=== PATIENT | male | born 1990 | race Hispanic/Latino ===

== ENCOUNTER → 2023-11-15 | Emergency (ER) | payer SELFPAY ==
[~2023-11-15] MED LIST: IBUPROFEN 400 MG TAB ONE; predniSONE 20 MG TAB ONE
--- NOTE | 2023-11-15 08:38 | RAD REPORT ---
EXAM DESCRIPTION: RAD - Lumbar Spine 3 Views - 11/15/2023 8:32 am CLINICAL HISTORY: RADICULOPATHY COMPARISON: CT ABD PELVIS W CONTRAST dated 06/23/2014 FINDINGS/IMPRESSION: No acute fracture. No malalignment. Mild disc height loss L5-S1. Endplate spurr ing is present at L2-3 and to a lesser extent L1-2 and L3-4 .
--- NOTE | 2023-11-15 11:49 | RAD REPORT ---
EXAM DESCRIPTION: MRI - Lumbar Spine Samara Zuniga - 11/15/2023 11:38 am CLINICAL HISTORY: Low back pain, left radiculopathy. COMPARISON: None. TECHNIQUE: Sagittal T1-weighted, T2-weighted and T2-STIR weighted sequences were obtained. Axial T1 -weighted and heavily T2-weighted sequenceswere obtained through the lumbar disc levels. FINDINGS: Lumbar bodies are normal in height and alignment. No suspicious marrow signal. No paraspin al masses. Conus is normal with no clumping or thickening of the cauda equina. T12-L1 level: No significant findings. L1-2 level: No significant findings. L2-3 level: Mild disc height loss and desiccation. Minimal subligamentous disc bulge. Small facet eff usions. No significant neural foraminal narrowing or central spinal stenosis. L3-4 level: No significant findings. L4-5 level: Annular fissure in the posterior aspect of the disc. Minimal subligamentous disc bulge. M ild facet and ligamentum flavum hypertrophy. This results in mild right neural foraminal narrowing. L eft neural foramen is adequate. No central spinal stenosis. L5-S1 level: Mild disc height loss and desiccation. Mild broad-based disc bulge with superimposed lef t paracentral/foraminal disc extrusion angulated inferiorly which encroaches on the traversing left S 1 nerve root at the level of the epidural fat. Facet hypertrophy. IMPRESSION: Left paracentral/foraminal disc extrusion at L5-S1 encroaches on the traversing left S1 nerve root and likely explains the patient's radiculopathy. Other mild degenerative changes as noted above.
--- NOTE | 2023-11-15 12:01 | EDPHYS ---
Physician Documentation [facility] Name: Jesus Moreland Age: 33 yrs Sex: Male : 1990 Arrival Date: 11/15/2023 Time: 06:55 Bed 14 Private MD: ED Physician Nabor Mesa HPI: 11/14 07:20 This 33 yrs old Male presents to ER via Ambulatory with complaints of Leg Pain sp3 - left. 07:20 33-year-old male with no significant past medical history presents with left radicular sp3 pain starting at the buttock into the posterior aspect of the left leg down to his foot. Patient states it is worse when he sits and when he ambulates. It is less when he is laying down. He denies any injury, heavy lifting or prior injury or herniation. He denies any foot drop or other inability to move musculature. On review of systems, he denies headache, neck pain, chest pain, shortness of breath, back pain, abdominal pain, rash, bleeding, weakness, or symptoms on any other aspect of his body except his left lower extremity.. Historical: - Allergies: 07:19 No Known Allergies; iw - Home Meds: 07:19 None [Active]; iw - PMHx: 07:19 None; iw - PSHx: 07:19 Appendectomy; iw - Immunization history:: Adult Immunizations not up to date. - Social history:: Smoking status: Patient denies any tobacco usage or history of. ROS: 07:21 Constitutional: Negative for fever, chills, and weight loss, Eyes: Negative for injury, sp3 pain, redness, and discharge, ENT: Negative for injury, pain, and discharge, Neck: Negative for injury, pain, and swelling, Cardiovascular: Negative for chest pain, palpitations, and edema, Respiratory: Negative for shortness of breath, cough, wheezing, and pleuritic chest pain, Abdomen/GI: Negative for abdominal pain, nausea, vomiting, diarrhea, and constipation, Back: Negative for injury and pain, Skin: Negative for injury, rash, and discoloration, Psych: Negative for depression, anxiety, suicide ideation, homicidal ideation, and hallucinations, Allergy/Immunology: Negative for hives, rash, and allergies, Endocrine: Negative for neck swelling, polydipsia, polyuria, polyphagia, and marked weight changes, Hematologic/Lymphatic: Negative for swollen nodes, abnormal bleeding, and unusual bruising, 07:21 All other systems are negative, Exam: 07:21 Constitutional: This is a well developed, well nourished patient who is awake, alert, sp3 and in no acute distress. Head/Face: Normocephalic, atraumatic. Neck: Trachea midline, no thyromegaly or masses palpated, and no cervical lymphadenopathy. Supple, full range of motion without nuchal rigidity, or vertebral point tenderness. No Meningismus. Chest/axilla: Normal chest wall appearance and motion. Nontender with no deformity. No lesions are appreciated. Cardiovascular: Regular rate and rhythm with a normal S1 and S2. No gallops, murmurs, or rubs. Normal PMI, no JVD. No pulse deficits. Respiratory: Lungs have equal breath sounds bilaterally, clear to auscultation and percussion. No rales, rhonchi or wheezes noted. No increased work of breathing, no retractions or nasal flaring. Abdomen/GI: Soft, non-tender, with normal bowel sounds. No distension or tympany. No guarding or rebound. No evidence of tenderness throughout. Back: No spinal tenderness. No costovertebral tenderness. Full range of motion. Skin: Warm, dry with normal turgor. Normal color with no rashes, no lesions, and no evidence of cellulitis. MS/ Extremity: Pulses equal, no cyanosis. Neurovascular intact. Full, normal range of motion. Psych: Awake, alert, with orientation to person, place and time. Behavior, mood, and affect are within normal limits. 07:21 Neuro: Normal neurological exam. Positive radicular pain on straight leg raise on the left side at approximately 30 degrees. Neurovascular exam is normal., Vital Signs: 07:17 BP 127 / 78; Pulse 82; Resp 16; Temp 98.1; Pulse Ox 96% on R/A; Weight 108.86 kg; iw Height 5 ft. 9 in. ; Pain 1/10; 07:17 Body Mass Index 35.44 (108.86 kg, 175.26 cm) iw 07:17 Pain Scale: Adult iw MDM: 07:08 Patient medically screened. sp3 07:22 Data reviewed: vital signs, nurses notes, radiologic studies. ED course: 33-year-old sp3 male with left lower extremity radiculopathy. Differential diagnosis includes disc herniation at the lumbar level, sciatica, or other space-occupying lesion somewhere on the nerve itself. Will obtain lumbar x-rays and administer prednisone and NSAID high-dose x 1 orally. Will also call MRI to see if they can get patient in not emergently during his stay here. Otherwise he will be referred to outpatient orthopedics for further imaging and evaluation. I am not highly suspicious for cord compression, sepsis, shock, paraspinal abscess epidural abscess or any other concerning pathology at this time.. 11:57 ED course: MRI demonstrates left paracentral foraminal disc extrusion at L5-S1 sp3 encroaching on the S1 nerve root. This explains clinically the patient's symptoms. We will discharge to orthopedic and/or spinal surgery for definitive intervention. Will discharge patient on diclofenac and NSAID at this time.. 11/14 07:16 Order name: Lumbar Spine (3 Views) XRAY; Complete Time: 08:40 sp3 11/14 11:08 Order name: Lumbar Spine Wo Con; Complete Time: 11:55 EDMS Administered Medications: 07:30 Drug: predniSONE PO 60 mg PO once Route: PO; iw 08:00 Follow up: Response: No adverse reaction iw 07:30 Drug: Ibuprofen PO 800 mg PO once Route: PO; iw 08:00 Follow up: Response: No adverse reaction iw Disposition Summary: 11/15/23 12:00 Discharge Ordered Notes: Location: Home sp3 Condition: Stable sp3 Diagnosis - Lumbar radiculopathy, paracentral disc extrusion L5-S1 sp3 Followup: sp3 - With: Private Physician - When: Upon discharge from the Emergency Department - Reason: Continuance of care Followup: sp3 - With: Tico Cervantes MD - When: Upon discharge from the Emergency Department - Reason: Recheck today's complaints Discharge Instructions: - Discharge Summary Sheet sp3 - Herniated Disk sp3 - Lumbosacral Radiculopathy sp3 Forms: - Work release form aa5 - Medication Reconciliation Form sp3 - Thank You Letter sp3 - Antibiotic Education sp3 - Prescription Opioid Use sp3 - Patient Portal Instructions sp3 - Leadership Thank You Letter sp3 Prescriptions: - Diclofenac Sodium 75 mg Oral Tablet Sustained Release - take 1 tablet ORAL route 2 times per day; 30 tablet; Refills: 0, Product sp3 Selection Permitted - Prednisone 20 mg Oral Tablet - take 2 tablets ORAL route once daily for 5 days; 10 tablet; Refills: 0, Product sp3 Selection Permitted Signatures: Dispatcher [employer] Megha Giles RN RN iw Patel, Setul, MD MD sp3 Corrections: (The following items were deleted from the chart) 11:08 08:43 Spine Lumbar W/Wo Cont ordered. NICKI CACERES
--- NOTE | 2023-11-15 12:01 | ER ---
Nurse's Notes [facility] Name: Jesus Moreland Age: 33 yrs Sex: Male : 1990 Arrival Date: 11/15/2023 Time: 06:55 Bed 14 Private MD: Diagnosis: Lumbar radiculopathy, paracentral disc extrusion L5-S1 Presentation: 11/14 07:17 Chief complaint: Patient states: pain in left leg from low back down to ankle since iw Sunday , no known injury. Coronavirus screen: At this time, the client does not indicate any symptoms associated with coronavirus-19. Ebola Screen: Patient negative for fever greater than or equal to 101.5 degrees Fahrenheit, and additional compatible Ebola Virus Disease symptoms Patient denies exposure to infectious person. Patient denies travel to an Ebola-affected area in the 21 days before illness onset. No symptoms or risks identified at this time. Initial Sepsis Screen: Does the patient meet any 2 criteria? Does the patient have a suspected source of infection? No. Patient's initial sepsis screen is negative. Risk Assessment: Do you want to hurt yourself or someone else? Patient reports no desire to harm self or others. Onset of symptoms was November 10, 2023. 07:17 Method Of Arrival: Ambulatory iw 07:17 Acuity: DEREK 4 iw 08:57 Acuity: DEREK 3 iw Historical: - Allergies: 07:19 No Known Allergies; iw - Home Meds: 07:19 None [Active]; iw - PMHx: 07:19 None; iw - PSHx: 07:19 Appendectomy; iw - Immunization history:: Adult Immunizations not up to date. - Social history:: Smoking status: Patient denies any tobacco usage or history of. Screenin:13 [facility] ED Fall Risk Assessment (Adult) Score/Fall Risk Level 0 - 2 = Low Risk. Abuse iw screen: Denies threats or abuse. Denies injuries from another. Nutritional screening: No deficits noted. Tuberculosis screening: No symptoms or risk factors identified. Assessment: 07:30 General: Appears in no apparent distress. comfortable, Behavior is calm, cooperative. iw Pain: Complains of pain in left low back Pain radiates to left leg Pain currently is 1 out of 10 on a pain scale. at worst was 8 out of 10 on a pain scale. Neuro: Level of Consciousness is awake, alert, obeys commands, Oriented to person, place, time, situation, Moves all extremities. Cardiovascular: Patient's skin is warm and dry. Respiratory: Respiratory effort is even, unlabored, Respiratory pattern is regular, symmetrical. Derm: Skin is intact, is healthy with good turgor. Musculoskeletal: Range of motion: intact in all extremities. 08:57 Reassessment: Patient appears in no apparent distress at this time. Patient and/or iw family updated on plan of care and expected duration. Pain level reassessed. Patient is alert, oriented x 3, equal unlabored respirations, skin warm/dry/pink. awaiting MRI. 10:39 Reassessment: Patient appears in no apparent distress at this time. Patient and/or iw family updated on plan of care and expected duration. Pain level reassessed. Patient is alert, oriented x 3, equal unlabored respirations, skin warm/dry/pink. Vital Signs: 07:17 BP 127 / 78; Pulse 82; Resp 16; Temp 98.1; Pulse Ox 96% on R/A; Weight 108.86 kg; iw Height 5 ft. 9 in. ; Pain 09/05; 07:17 Body Mass Index 35.44 (108.86 kg, 175.26 cm) iw 07:17 Pain Scale: Adult iw ED Course: 06:58 Patient arrived in ED. im 07:03 Nabor Mesa MD is Attending Physician. sp3 07:17 Megha Reeves, RN is Primary Nurse. iw 07:19 Triage completed. iw 07:20 Arm band placed on. iw 08:13 No provider procedures requiring assistance completed. Patient did not have IV access iw during this emergency room visit. 08:23 Patient moved to radiology via wheelchair. iw 08:23 X-ray(s) taken. iw 08:33 Lumbar Spine (3 Views) XRAY In Process Unspecified. EDMS 11:38 Lumbar Spine Wo Con In Process Unspecified. EDMS 11:59 Tico Cervantes MD is Referral Physician. sp3 12:19 Patient has correct armband on for positive identification. Provided Education on: . iw Administered Medications: 07:30 Drug: predniSONE PO 60 mg PO once Route: PO; iw 08:00 Follow up: Response: No adverse reaction iw 07:30 Drug: Ibuprofen PO 800 mg PO once Route: PO; iw 08:00 Follow up: Response: No adverse reaction iw Medication: 08:13 VIS not applicable for this client. iw Outcome: 12:00 Discharge ordered by sp3 12:20 Discharged to home ambulatory, iw 12:20 Condition: good 12:20 Discharge instructions given to patient, Instructed on discharge instructions, follow up and referral plans. Demonstrated understanding of instructions, follow-up care, 12:20 Patient left the ED. iw Signatures: Dispatcher [employer] EDMegha Feliciano RN RN iw Nabor Mesa MD MD sp3 Kell Balbuena Corrections: (The following items were deleted from the chart) 07:21 07:17 BP 127 / 78; Pulse 82bpm; Resp 16bpm; Pulse Ox 96% RA; 108.86 kg; Height 5 ft. 9 iw in.; BMI: 35.4; Pain 09/05, Adult; iw
[2023-11-15 12:52] VITALS: BP 127/78; TEMP 98.1; O2SAT 96
== END ==
LOC: ER 06:55
DX: M54.16 Radiculopathy, lumbar region (principal); M51.27 Other intervertebral disc displacement, lumbosacral region
CPT/HCPCS: 72100; 72148; 99283; J7512